=== PATIENT | female | born 1950 | race African-American/Black ===

== ENCOUNTER 2018-09-21 14:34 | Emergency (ER) | payer SELFPAY ==
[~2018-09-21] VITALS: Ht 165.1 cm; Wt 60.4 kg
[2018-09-21 14:43] VITALS: BP 126/71; PULSE 84; RESP 16; Ht 165.1 cm; Wt 60.4 kg
[2018-09-21] MEDS ORDERED: ACETAMINOPHEN 325 MG TAB PO ONE (16:00)
[2018-09-21] MEDS ORDERED: LIDOCAINE 1% (MPF) 5 ML VIAL INFIL ONE (16:00)
--- NOTE | 2018-09-21 16:06 | ERD ---
ER Documentation Chief Complaint Chief Complaint PT REQUESTS REMOVAL OF LUMP ON CENTER/RIGHT CHEST ROS All systems reviewed and are negative except as per history of present illness. Allergies Allergies: Coded Allergies: No Known Allergy (Unverified , 10/11/14) PMhx/Soc History of Surgery: No Hx Neurological Disorder: No Hx Respiratory Disorders: No Hx Cardiac Disorders: No Hx Psychiatric Problems: No Hx Miscellaneous Medical Probl: No Hx Alcohol Use: No Hx Substance Use: No Hx Tobacco Use: No Smoking Status: Never smoker Physical Exam Vitals Vital Signs Date Temp Pulse Resp B/P (MAP) Pulse Ox O2 O2 Flow FiO2 Time Delivery Rate 09/21/18 99.1 84 16 126/71 100 14:43 (89) Physical Exam Const: No acute distress Head: Atraumatic Eyes: Normal Conjunctiva ENT: Normal External Ears, Nose and Mouth. Neck: Full range of motion. No meningismus. Resp: Clear to auscultation bilaterally Cardio: Regular rate and rhythm, no murmurs Abd: Soft, non tender, non distended. Normal bowel sounds Skin: No petechiae or rashes Back: No midline or flank tenderness Ext: No cyanosis, or edema Neur: Awake and alert Psych: Normal Mood and Affect Results 24 hrs Current Medications Medications Dose Sig/Kaveh Start Time Status Last (Trade) Ordered Route PRN Stop Time Admin Dose Reason Admin Lidocaine 5 ml ONCE ONCE 09/21/18 DC 09/21/18 (Xylocaine INFIL 16:00 15:49 1% (Mpf)) 09/21/18 16:01 650 mg ONCE ONCE 09/21/18 DC 09/21/18 Acetaminophen PO 16:00 15:49 (Tylenol 09/21/18 16:01 Tab) Departure Diagnosis: Primary Impression: Skin mass Condition: Fair Patient Instructions: Abscess Drainage Referrals: [facility] YOU HAVE RECEIVED A MEDICAL SCREENING EXAM AND THE RESULTS INDICATE THAT YOU DO NOT HAVE A CONDITION THAT REQUIRES URGENT TREATMENT IN THE EMERGENCY DEPARTMENT. FURTHER EVALUATION AND TREATMENT OF YOUR CONDITION CAN WAIT UNTIL YOU ARE SEEN IN YOUR DOCTORS OFFICE WITHIN THE NEXT 1-2 DAYS. IT IS YOUR RESPONSIBILITY TO MAKE AN APPOINTMENT FOR FOLOW-UP CARE. IF YOU HAVE A PRIMARY DOCTOR --you should call your primary doctor and schedule an appointment IF YOU DO NOT HAVE A PRIMARY DOCTOR YOU CAN CALL OUR PHYSICIAN REFERRAL HOTLINE AT IF YOU CAN NOT AFFORD TO SEE A PHYSICIAN YOU CAN CHOSE FROM THE FOLLOWING [facility] [address] [facility] [address] [facility] [facility] [address] [facility] [address] [facility]. [facility] [address] [facility]. [facility]. [address] Additional Instructions: Call your primary care doctor TOMORROW for an appointment during the next 1-2 days.See the doctor sooner or return here if your condition worsens before your appointment time. HÉCTOR PARISI DO Sep 21, 2018 16:06
== END 2018-09-21 16:16 | disposition home or self-care (01) ==
LOC: FTE 14:34
DX: R22.2 Localized swelling, mass and lump, trunk (principal)
CPT/HCPCS: 99282